=== PATIENT | male | born 1995 | race Caucasian/White ===

== ENCOUNTER 2016-12-13 22:18 | Emergency (ER) | payer SELFPAY ==
[~2016-12-13 22:18] MED LIST: ACNE PO; IBUPROFEN800 MG PO; ROBAXIN500 MG PO
[2016-12-13] MEDS ORDERED: NO MEDICATIONS (23:21)
== END 2016-12-14 00:47 | disposition left against medical advice (07) ==
LOC: SED 22:18
DX: Z53.21 Procedure and treatment not carried out due to patient leaving prior to being seen by health care provider (principal)